=== PATIENT | female | born 2000 | race Two or more races ===

== ENCOUNTER 2018-06-30 22:14 | Emergency (ER) | payer SELFPAY ==
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
[2018-07-01 00:37] LABS: ABSOLUTE EOSINOPHILS # (AUTO) 0.2 10^3/uL (0.0-0.6); ABSOLUTE LYMPHOCYTES (AUTO) 2.2 10^3/uL (0.5-4.7); ABSOLUTE MONOCYTES (AUTO) 0.5 10^3/uL (0.1-1.4); ABSOLUTE NEUT (AUTO) 2.1 10^3/uL (1.7-8.2); BASOPHILS % (AUTO) 0.3 % (0-2); EOSINOPHILS % (AUTO) 4.9 % (0-6); HEMATOCRIT 37.1 % (36.0-47.0); HEMOGLOBIN 12.9 g/dL (12.0-15.5); LYMPHOCYTES % (AUTO) 43.8 % (13-45); MEAN CORPUSCULAR HGB CONC 34.6 g/dL (32.0-36.0); MEAN CORPUSCULAR VOLUME 93 fl (80-97); MONOCYTES % (AUTO) 9.2 % (3-13); PLATELET COUNT 179 10^3/uL (150-450); RED BLOOD COUNT 4.02 10^6/uL (3.72-5.28); RED CELL DISTRIBUTION WIDTH 11.9 % (11.5-14.0); SEGMENTED NEUTROPHILS % (AUTO) 41.8 % (42-78); TOTAL CELLS COUNTED % (AUTO) 100 %
[2018-07-01 00:46] LABS: APPEARANCE,URINE CLOUDY; BILIRUBIN,URINE NEGATIVE (NEGATIVE); COLOR,URINE YELLOW; GLUCOSE, URINE NEGATIVE (NEGATIVE); KETONES,URINE NEGATIVE (NEGATIVE); LEUKOCYTE ESTERASE,URINE MODERATE (NEGATIVE); NITRITE,URINE NEGATIVE (NEGATIVE); PROTEIN,URINE NEGATIVE (NEGATIVE); URINE SPECIFIC GRAVITY 1.021
[2018-07-01 00:54] LABS: ALANINE AMINOTRANSFERASE 21 U/L (9-52); ALBUMIN 4.4 g/dL (3.5-5.0); ALKALINE PHOSPHATASE 55 U/L (38-126); ANION GAP 10 (5-19); ASPARTATE AMINO TRANSFERASE 24 U/L (14-36); BILIRUBIN,DIRECT 0.2 mg/dL (0.0-0.4); BILIRUBIN,TOTAL 0.3 mg/dL (0.2-1.3); BLOOD UREA NITROGEN 12 mg/dL (7-20); CALCIUM 9.6 mg/dL (8.4-10.2); CARBON DIOXIDE 26 mmol/L (22-30); CHLORIDE 103 mmol/L (98-107); GLUCOSE 99 mg/dL (75-110); LIPASE 117.7 U/L (23-300); POTASSIUM 4.1 mmol/L (3.6-5.0); SODIUM 138.6 mmol/L (137-145); TOTAL PROTEIN 7.7 g/dL (6.3-8.2)
--- NOTE | 2018-07-01 01:06 | RADIOLOGY REPORT (SQ) ---
XR ABDOMEN 2 VIEWS SUPINE ERECT HISTORY: Abdominal pain. Nausea. COMPARISON: None. FINDINGS: There is copious stool throughout the colon and rectum with a nonobstructive bowel gas pattern. No intraperitoneal free air or air-fluid levels are visualized on the upright view. No abnormal soft tissue calcifications are seen. The lung bases are clear. There are no acute bony findings. IMPRESSION: Nonobstructive bowel gas pattern. Query constipation.
[2018-07-01] MEDS ORDERED: MAGNESIUM CITRATE 296 ML BOTTLE PO ONE (01:41)
[2018-07-01] MEDS ORDERED: ONDANSETRON ODT 4 MG TAB (6 TAB/ER DISP) PO PRN (01:42)
[2018-07-01 01:48] VITALS: BP 109/67
== END 2018-07-01 01:54 | disposition home or self-care (01) ==
LOC: ER 22:14
DX: K59.00 Constipation, unspecified (principal); R10.84 Generalized abdominal pain; R10.817 Generalized abdominal tenderness; Z87.442 Personal history of urinary calculi
CPT/HCPCS: 99284; 36415; 83690; 85025; 81025; 80053; 81001; 74019; J3490

== ENCOUNTER 2019-07-08 23:03 | Observation (INO) | payer MEDICAID, OTHER ==
[2019-07-09 02:26] LABS: ABSOLUTE EOSINOPHILS # (AUTO) 0.1 10^3/uL (0.0-0.6); ABSOLUTE LYMPHOCYTES (AUTO) 1.8 10^3/uL (0.5-4.7); ABSOLUTE MONOCYTES (AUTO) 0.7 10^3/uL (0.1-1.4); ABSOLUTE NEUT (AUTO) 6.4 10^3/uL (1.7-8.2); BASOPHILS % (AUTO) 0.2 % (0-2); EOSINOPHILS % (AUTO) 1.4 % (0-6); HEMATOCRIT 35.9 % (36.0-47.0); HEMOGLOBIN 12.7 g/dL (12.0-15.5); LYMPHOCYTES % (AUTO) 19.7 % (13-45); MEAN CORPUSCULAR HEMOGLOBIN 32.4 pg (27.0-33.4); MEAN CORPUSCULAR HGB CONC 35.2 g/dL (32.0-36.0); MEAN CORPUSCULAR VOLUME 92 fl (80-97); MONOCYTES % (AUTO) 7.3 % (3-13); PLATELET COUNT 163 10^3/uL (150-450); RED BLOOD COUNT 3.91 10^6/uL (3.72-5.28); RED CELL DISTRIBUTION WIDTH 12.3 % (11.5-14.0); SEGMENTED NEUTROPHILS % (AUTO) 71.4 % (42-78); TOTAL CELLS COUNTED % (AUTO) 100 %
[2019-07-09] MEDS ORDERED: NORMAL SALINE 1000 ML 1,000 ML IV ONE (02:47)
[2019-07-09] MEDS ORDERED: MORPHINE SULFATE 10 MG/ML INJ IV ONE (02:47)
[2019-07-09] MEDS ORDERED: ONDANSETRON HCL INJ/PF 4 MG/2 ML SDV IV ONE (02:48)
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
[2019-07-09 03:04] LABS: ALBUMIN 4.4 g/dL (3.5-5.0); ALKALINE PHOSPHATASE 61 U/L (38-126); ANION GAP 9 (5-19); ASPARTATE AMINO TRANSFERASE 23 U/L (14-36); BILIRUBIN,TOTAL 0.6 mg/dL (0.2-1.3); BLOOD UREA NITROGEN 12 mg/dL (7-20); CALCIUM 9.2 mg/dL (8.4-10.2); CARBON DIOXIDE 25 mmol/L (22-30); CHLORIDE 102 mmol/L (98-107); GLUCOSE 104 mg/dL (75-110); POTASSIUM 4.1 mmol/L (3.6-5.0); TOTAL PROTEIN 7.7 g/dL (6.3-8.2)
[2019-07-09 04:13] LABS: APPEARANCE,URINE SLIGHTLY-CLOUDY; BILIRUBIN,URINE NEGATIVE (NEGATIVE); COLOR,URINE STRAW; GLUCOSE, URINE NEGATIVE (NEGATIVE); KETONES,URINE NEGATIVE (NEGATIVE); LEUKOCYTE ESTERASE,URINE MODERATE (NEGATIVE); NITRITE,URINE NEGATIVE (NEGATIVE); PROTEIN,URINE NEGATIVE (NEGATIVE); UROBILINOGEN,URINE NEGATIVE mg/dL (<2.0)
--- NOTE | 2019-07-09 06:27 | RADIOLOGY REPORT (SQ) ---
CT ABDOMEN AND PELVIS WITH INTRAVENOUS CONTRAST: 07/09/2019 5:06 AM CDT HISTORY: 19-year old with right lower quadrant abdominal pain. COMPARISON: None available TECHNIQUE: Axial contiguous images were obtained from the lung bases to the proximal femurs with intravenous intravenous contrast administered. Oral contrast was also given to the patient. Sagittal and coronal reconstructions were also obtained and reviewed. This exam was performed according to our departmental dose-optimization program, which includes automated exposure control, adjustment of the mA and/or KV according to the patient's size and/or use of iterative reconstruction technique. FINDINGS: No focal consolidative airspace opacities are seen. No discrete pleural effusion is seen. The visualized hepatic parenchyma is unremarkable. No focal enhancing lesion is seen. The gallbladder demonstrates no evidence of calcified gallstones The spleen, pancreas, and adrenals are normal in size and contour. The kidneys demonstrate no evidence of hydronephrosis. Bladder is minimally distended, but grossly appears unremarkable. The uterus is present. The stomach is mildly distended with oral contrast. The small bowel loops appear unremarkable. There is mild stranding with increased prominence of the appendix without evidence of a periappendiceal fluid collection is seen. There is no evidence of pneumoperitoneum or free fluid. The aorta and IVC appear normal in size. No significantly enlarged lymph nodes are seen in the abdomen or pelvis. Review of the bone show no evidence of any suspicious lytic or blastic lesions. IMPRESSION: The appendix is enlarged with adjacent inflammatory stranding consistent with acute appendicitis.
[2019-07-09] MEDS ORDERED: PIPERACILLIN/TAZOBACTAM 3.375 GM VIAL IV ONE (06:31)
[2019-07-09] MEDS ORDERED: NORMAL SALINE 1000 ML 1,000 ML IV PRN (06:34)
[2019-07-09] MEDS ORDERED: DEXTROSE 40% GEL 15 GM TUBE PO PRN ×2 (07:08)
[2019-07-09] MEDS ORDERED: ONDANSETRON HCL INJ/PF 4 MG/2 ML SDV IV PRN ×2 (07:08→15:15)
[2019-07-09] MEDS ORDERED: DEXTROSE 5%-LACTATED RINGERS 1,000 ML IV PRN (07:08)
[2019-07-09] MEDS ORDERED: GLUCAGON,HUMAN RECOMB 1 MG INJ SUBCUT PRN (07:08)
[2019-07-09] MEDS ORDERED: MORPHINE SULFATE 10 MG/ML INJ IV PRN (07:08)
[2019-07-09] MEDS ORDERED: DEXTROSE 50%-WATER 25 GM/50 ML DISP.SYRIN IV PRN ×2 (07:08)
--- NOTE | 2019-07-09 07:31 | PDOC H&P ---
History of Present Illness Admission Date/PCP: 07/09/19 06:48 Patient complains of: Right lower quadrant pain History of Present Illness: BRITTON LUCIA is a 19 year old female with a 1 day history of severe right lower quadrant pain. It is sharp and stabbing. It does not radiate. She rates it 5 out of 10. Palpation of worse. Nothing makes it better. Her pain waxes and wanes. She denies chest pain, shortness of breath, fevers, chills, nausea, vomiting, dizziness, blurry vision, orthostasis, rash, fatigue, malaise. She does report a history of constipation. Past Medical History Medical History: None Past Surgical History Past Surgical History: Reports: Orthopedic Surgery - left shoulder, facial Social History Smoking Status: Never Smoker Electronic Cigarette use?: No Hx Recreational Drug Use: No Hx Prescription Drug Abuse: No Family History Family History: Reviewed & Not Pertinent Parental Family History Reviewed: Yes Children Family History Reviewed: Yes Sibling(s) Family History Reviewed.: Yes Medication/Allergy Home Medications: Dicyclomine HCl [Bentyl 20 mg Tablet] 20 mg PO QID PRN #20 tablet 07/01/18 Docusate Sodium [Colace 100 mg Capsule] 100 mg PO ASDIR PRN #30 capsule 07/01/18 Ondansetron [Zofran Odt 4 mg Tablet] 1 - 2 tab PO Q4H PRN #15 tab.rapdis 07/01/18 Allergies/Adverse Reactions: No Known Allergies Allergy (Verified 07/08/19 23:40) Review of Systems Constitutional: ABSENT: anorexia, chills, fatigue, weakness Eyes: ABSENT: visual disturbances Ears: ABSENT: hearing changes Nose, Mouth, and Throat: ABSENT: sore throat Cardiovascular: ABSENT: chest pain Respiratory: ABSENT: cough, dyspnea Gastrointestinal: PRESENT: abdominal pain, constipation. ABSENT: hematemesis, hematochezia, melena, nausea, vomiting Genitourinary: ABSENT: dysuria Musculoskeletal: ABSENT: back pain Integumentary: ABSENT: pruritus, rash Neurological: ABSENT: confusion, convulsions, dizziness Psychiatric: ABSENT: anxiety, depression Endocrine: ABSENT: cold intolerance, heat intolerance Hematologic/Lymphatic: ABSENT: easy bleeding Physical Exam Vital Signs: Temp Pulse Resp BP Pulse Ox 98.6 F 106 H 14 107/67 99 07/08/19 23:41 07/08/19 23:07 07/08/19 23:07 07/08/19 23:07 07/08/19 23:07 Intake & Output 07/08/19 07/09/19 07/10/19 06:59 06:59 06:59 Intake Total 1000 Balance 1000 Weight 60.7 kg General appearance: PRESENT: no acute distress, cooperative Head exam: PRESENT: atraumatic, normocephalic Eye exam: PRESENT: EOMI, PERRLA. ABSENT: scleral icterus Mouth exam: PRESENT: moist, neck supple Neck exam: ABSENT: meningismus, tenderness, thyromegaly, tracheal deviation Respiratory exam: PRESENT: unlabored. ABSENT: chest wall tenderness, tachypnea, wheezes Cardiovascular exam: ABSENT: tachycardia Vascular exam: ABSENT: normal capillary refill GI/Abdominal exam: PRESENT: guarding - Right lower quadrant, soft, tenderness. ABSENT: distended Rectal exam: PRESENT: deferred Extremities exam: ABSENT: clubbing Musculoskeletal exam: ABSENT: deformity Neurological exam: PRESENT: alert, awake, oriented to person, oriented to place, oriented to time, oriented to situation, CN II-XII grossly intact. ABSENT: motor sensory deficit Psychiatric exam: ABSENT: agitated, anxious, depressed Focused psych exam: ABSENT: delusional Skin exam: ABSENT: cyanosis, erythema, jaundice Results Laboratory Results: 07/09/19 02:05 07/09/19 02:05 07/09/19 07/09/19 07/09/19 02:05 02:05 03:55 WBC 9.0 RBC 3.91 Hgb 12.7 Hct 35.9 L MCV 92 MCH 32.4 MCHC 35.2 RDW 12.3 Plt Count 163 Seg Neutrophils % 71.4 Sodium 135.6 L Potassium 4.1 Chloride 102 Carbon Dioxide 25 Anion Gap 9 BUN 12 Creatinine 0.53 Est GFR ( Amer) > 60 Glucose 104 Calcium 9.2 Total Bilirubin 0.6 AST 23 Alkaline Phosphatase 61 Total Protein 7.7 Albumin 4.4 Lipase 84.9 Urine Color STRAW Urine Appearance SLIGHTLY-CLOUDY Urine pH 7.0 Ur Specific Harrod 1.010 Urine Protein NEGATIVE Urine Glucose (UA) NEGATIVE Urine Ketones NEGATIVE Urine Blood NEGATIVE Urine Nitrite NEGATIVE Ur Leukocyte Esterase MODERATE H Urine WBC (Auto) 5 Urine RBC (Auto) 2 Impressions: Abdomen/Pelvis CT 07/09/19 00:00 IMPRESSION: The appendix is enlarged with adjacent inflammatory stranding consistent with acute appendicitis. Assessment & Plan - Diagnosis (1) Acute appendicitis Qualifiers: Acute appendicitis type: with localized peritonitis Appendicitis gangrene presence: without gangrene Appendicitis perforation presence: without perforation Appendicitis abscess presence: without abscess Qualified Code(s): K35.30 - Acute appendicitis with localized peritonitis, without perforation or gangrene Is this a current diagnosis for this admission?: Yes - Plan Summary Plan Summary: This is a 19-year-old female with a history, physical, and radiologic study consistent with acute appendicitis. I have reviewed her CT scan. Her appendix is thickened, with periappendiceal stranding. The patient is tender in her right lower quadrant on examination. I have discussed treatment options with her at length. I have offered her surgical intervention, and she has agreed. Risks/benefits discussed, informed consent obtained, and all questions answered.
[2019-07-09] MEDS: FAMOTIDINE INJ/PF 20 MG/2 ML SDV IV SCH ×2 (09:13→21:44)
[2019-07-09] MEDS ORDERED: ROCURONIUM BROMIDE INJ 50 MG/5 ML VIAL IV ONE (10:00)
[2019-07-09] MEDS ORDERED: GLYCOPYRROLATE 1 MG/5 ML VIAL ONE (10:00)
[2019-07-09] MEDS ORDERED: NEOSTIGMINE METHYLSULFATE 10 MG/10 ML VIAL ONE (10:00)
[2019-07-09] MEDS ORDERED: METOCLOPRAMIDE HCL INJ/PF 10 MG/2 ML SDV ONE (10:00)
[2019-07-09] MEDS ORDERED: KETOROLAC TROMETHAMINE 60 MG/2 ML SDV ONE (10:00)
[2019-07-09] MEDS ORDERED: DEXAMETHASONE SOD PHOSPHATE INJ 4 MG/1 ML VIAL ONE (10:00)
[2019-07-09] MEDS ORDERED: ONDANSETRON HCL INJ/PF 4 MG/2 ML SDV ONE ×2 (10:00→18:32)
[2019-07-09] MEDS ORDERED: LIDOCAINE 2% INJ-PF (20 MG/ML) 2 ML AMPUL ONE (10:00)
[2019-07-09] MEDS ORDERED: PIPERACILLIN SODIUM/TAZOBACTAM 3.375 GM in NORMAL SALINE 100 ML IV SCH (12:00)
[2019-07-09] MEDS ORDERED: HYDROMORPHONE HCL INJ/PF 2 MG/ML AMPULE ONE (13:55)
[2019-07-09] MEDS ORDERED: PROPOFOL INJ 200 MG/20 ML VIAL IV ONE (13:55)
[2019-07-09] MEDS ORDERED: MIDAZOLAM 2 MG/2 ML INJ ONE (13:55)
[2019-07-09] MEDS: KETOROLAC TROMETHAMINE INJ/PF 30 MG/1 ML SDV IV SCH ×2 (14:20→22:14)
[2019-07-09] MEDS ORDERED: OXYCODONE-ACETAMINOPHEN 5-325 MG TABLET PO PRN ×2 (15:15)
[2019-07-09] MEDS ORDERED: PROMETHAZINE HCL INJ 25 MG/1 ML VIAL IV PRN ×3 (15:15→19:40)
[2019-07-09] MEDS ORDERED: MEPERIDINE HCL/PF INJ 25 MG/1 ML DISP.SYRIN IV PRN (15:15)
[2019-07-09] MEDS ORDERED: FENTANYL CITRATE INJ/PF 100 MCG/2 ML AMPUL IV PRN ×3 (15:15)
[2019-07-09] MEDS ORDERED: DIPHENHYDRAMINE HCL 50 MG/ML VIAL IV PRN (15:15)
[2019-07-09] MEDS ORDERED: BUPIVACAINE HCL 0.25 % INJ/PF (2.5 MG/1 ML) 30 ML VIAL ONE (16:22)
--- NOTE | 2019-07-09 18:18 | Operative Report ---
Nonrecallable Operative Report DATE OF SURGERY: 07/09/19 PREOPERATIVE DIAGNOSIS: Acute appendicitis POSTOPERATIVE DIAGNOSIS: Acute nonperforated appendicitis OPERATION: Laparoscopic appendectomy SURGEON: DAILY RILEY ANESTHESIA: GA TISSUE REMOVED OR ALTERED: Appendix COMPLICATIONS: None apparent ESTIMATED BLOOD LOSS: Minimal PROCEDURE: Drains/implants: None. Procedure in detail: After informed consent was obtained, the patient was brought to the operating room and laid in the supine position. The area of the abdomen was prepped and draped in a normal sterile fashion. An infraumbilical incision was created with a 15 blade scalpel. Dissection was carried through the subcutaneous tissue using sharp and blunt dissection. The cicatrix was identified, grasped with a Han clamp, and retracted upwards. The linea alba fascia was incised sharply, the abdomen was entered sharply. The balloon trocar was inserted, and pneumoperitoneum was achieved. A suprapubic 5 mm port was then placed under direct laparoscopic visualization. Another 5 mm port was placed in the left lower quadrant in similar fashion. Atraumatic graspers were placed through the 5 mm ports. The appendix was easily identified. It was inflamed, and edematous. The mesoappendix was taken down using the harmonic scalpel. 2 PDS Endoloops were then secured around the base of the appendix. The appendix was amputated using the harmonic scalpel. It was placed into an Endo Catch bag and pulled out through the umbilicus. The camera was reinserted. The right lower quadrant was found to be hemostatic. The 5 mm trochars were then removed under direct laparoscopic visualization. The infraumbilical trocar was removed, and pneumoperitoneum was relieved. The infraumbilical fascia was closed using 0 Vicryl suture in [id number] fashion. The overlying skin was closed using 4-0 Vicryl Rapide suture in subcuticular fashion. Dressings were placed, and the procedure was concluded. All sponge, instrument, needle counts were correct x2. Condition: Stable.
[2019-07-09] MEDS ORDERED: ACETAMINOPHEN 1,000 MG/100 ML RTUPB IV ONE (18:44)
[2019-07-09] MEDS ORDERED: PROMETHAZINE HCL INJ 25 MG/1 ML VIAL ONE (19:46)
[2019-07-10] MEDS ORDERED: KETOROLAC TROMETHAMINE INJ/PF 30 MG/1 ML SDV IV ONE (03:30)
--- NOTE | 2019-07-10 08:51 | PDOC DISCHARGE SUMMARY ---
General - Admit/Disc Date/PCP Admission Date/Primary Care Provider: 07/09/19 06:48 Discharge Date: 07/10/19 - Discharge Diagnosis Final Diagnosis: appendicitis - Assessment Summary: pt admitted iwth acute appendicitis and underwant laparoscopic appendectomy on day of admission was observed overnght . developed urinary retention and required curry cath this am catheter can be removed and pt discharged home will f/u in surgery clinic in 7-10 days. - Additional Information Resuscitation Status: Full Code Discharge Diet: As Tolerated Discharge Activity: No Lifting Over 10 Pounds Prescriptions: Hydrocodone/Acetaminophen [[place] 10-325 mg Tablet] 1 tab PO Q6HP PRN #10 tablet PRN Reason: Home Medications: Hydrocodone/Acetaminophen [[place] 10-325 mg Tablet] 1 tab PO Q6HP PRN #10 tablet 07/10/19 History of Present Illiness History of Present Illness: BRITTON LUCIA is a 19 year old female Physical Exam Vital Signs: Temp Pulse Resp BP Pulse Ox 97.8 F 90 18 98/72 L 100 07/10/19 07:30 07/10/19 07:30 07/10/19 07:30 07/10/19 07:30 07/10/19 07:30 Intake & Output 07/09/19 07/10/19 07/11/19 06:59 06:59 06:59 Intake Total 1000 2500 Output Total 1975 Balance 1000 525 Weight 60.7 kg 61.7 kg Results Laboratory Results: WBC 9.0 10^3/uL (4.0-10.5) 07/09/19 02:05 RBC 3.91 10^6/uL (3.72-5.28) 07/09/19 02:05 Hgb 12.7 g/dL (12.0-15.5) 07/09/19 02:05 Hct 35.9 % (36.0-47.0) L 07/09/19 02:05 MCV 92 fl (80-97) 07/09/19 02:05 MCH 32.4 pg (27.0-33.4) 07/09/19 02:05 MCHC 35.2 g/dL (32.0-36.0) 07/09/19 02:05 RDW 12.3 % (11.5-14.0) 07/09/19 02:05 Plt Count 163 10^3/uL (150-450) 07/09/19 02:05 Lymph % (Auto) 19.7 % (13-45) 07/09/19 02:05 [place] % (Auto) 7.3 % (3-13) 07/09/19 02:05 Eos % (Auto) 1.4 % (0-6) 07/09/19 02:05 Baso % (Auto) 0.2 % (0-2) 07/09/19 02:05 Absolute Neuts (auto) 6.4 10^3/uL (1.7-8.2) 07/09/19 02:05 Absolute Lymphs (auto) 1.8 10^3/uL (0.5-4.7) 07/09/19 02:05 Absolute Monos (auto) 0.7 10^3/uL (0.1-1.4) 07/09/19 02:05 Absolute Eos (auto) 0.1 10^3/uL (0.0-0.6) 07/09/19 02:05 Absolute Basos (auto) 0.0 10^3/uL (0.0-0.2) 07/09/19 02:05 Seg Neutrophils % 71.4 % (42-78) 07/09/19 02:05 Sodium 135.6 mmol/L (137-145) L 07/09/19 02:05 Potassium 4.1 mmol/L (3.6-5.0) 07/09/19 02:05 Chloride 102 mmol/L (98-107) 07/09/19 02:05 Carbon Dioxide 25 mmol/L (22-30) 07/09/19 02:05 Anion Gap 9 (5-19) 07/09/19 02:05 BUN 12 mg/dL (7-20) 07/09/19 02:05 Creatinine 0.53 mg/dL (0.52-1.25) 07/09/19 02:05 Est GFR ( Amer) > 60 (>60) 07/09/19 02:05 Est GFR (MDRD) Non-Af > 60 (>60) 07/09/19 02:05 Glucose 104 mg/dL (75-110) 07/09/19 02:05 Calcium 9.2 mg/dL (8.4-10.2) 07/09/19 02:05 Total Bilirubin 0.6 mg/dL (0.2-1.3) 07/09/19 02:05 Direct Bilirubin 0.0 mg/dL (0.0-0.4) 07/09/19 02:05 Neonat Total Bilirubin Not Reportable 07/09/19 02:05 Neonat Direct Bilirubin Not Reportable 07/09/19 02:05 Neonat Indirect Bili Not Reportable 07/09/19 02:05 AST 23 U/L (14-36) 07/09/19 02:05 ALT 14 U/L (<35) 07/09/19 02:05 Alkaline Phosphatase 61 U/L (38-126) 07/09/19 02:05 Total Protein 7.7 g/dL (6.3-8.2) 07/09/19 02:05 Albumin 4.4 g/dL (3.5-5.0) 07/09/19 02:05 Lipase 84.9 U/L (23-300) 07/09/19 02:05 Urine Color STRAW 07/09/19 03:55 Urine Appearance SLIGHTLY-CLOUDY 07/09/19 03:55 Urine pH 7.0 (5.0-9.0) 07/09/19 03:55 Ur Specific [place] 1.010 07/09/19 03:55 Urine Protein NEGATIVE mg/dL (NEGATIVE) 07/09/19 03:55 Urine Glucose (UA) NEGATIVE mg/dL (NEGATIVE) 07/09/19 03:55 Urine Ketones NEGATIVE mg/dL (NEGATIVE) 07/09/19 03:55 Urine Blood NEGATIVE (NEGATIVE) 07/09/19 03:55 Urine Nitrite NEGATIVE (NEGATIVE) 07/09/19 03:55 Urine Bilirubin NEGATIVE (NEGATIVE) 07/09/19 03:55 Urine Urobilinogen NEGATIVE mg/dL (<2.0) 07/09/19 03:55 Ur Leukocyte Esterase MODERATE (NEGATIVE) H 07/09/19 03:55 Urine WBC (Auto) 5 /HPF 07/09/19 03:55 Urine RBC (Auto) 2 /HPF 07/09/19 03:55 Squamous Epi Cells Auto 6 /HPF 07/09/19 03:55 Urine Mucus (Auto) RARE /LPF 07/09/19 03:55 Urine Ascorbic Acid NEGATIVE (NEGATIVE) 07/09/19 03:55 Urine HCG, Qual NEGATIVE (NEGATIVE) 07/09/19 03:55 SARS-CoV-2 (PCR) NEGATIVE (NEGATIVE) 07/09/19 06:47 Impressions: Abdomen/Pelvis CT 07/09/19 00:00 IMPRESSION: The appendix is enlarged with adjacent inflammatory stranding consistent with acute appendicitis.
[2019-07-10] MEDS ORDERED: KETOROLAC TROMETHAMINE INJ/PF 30 MG/1 ML SDV IV SCH (10:00)
[2019-07-10 10:17] VITALS: BP 129/83
[2019-07-10] MEDS: FAMOTIDINE INJ/PF 20 MG/2 ML SDV IV SCH (10:21)
== END 2019-07-10 11:01 | disposition home or self-care (01) ==
LOC: ER 23:03 → EH 07-09 06:48 → 2S 07-09 08:54
PROVIDERS: ATTEND Surgery
DX: K36 Other appendicitis (principal); R33.9 Retention of urine, unspecified; K59.00 Constipation, unspecified; Z87.442 Personal history of urinary calculi; Z32.02 Encounter for pregnancy test, result negative; Z11.59 Encounter for screening for other viral diseases
CPT/HCPCS: 44970; 99285; 96361; 96374; 96375; 36415; 87086; 83690; 85025; 87635; 81025; 80053; 81001; 88304 ×2; 74177; J2250; J3490 ×4; J1100; J1885 ×3; J2765; J2270; J2710; J1170; J2550; J2405; J7121; J7050; J7030; J2704; S0028 ×2; J2543; J0131; 840; G0378